=== PATIENT | male | born 1955 | race Caucasian/White ===

== ENCOUNTER 2018-07-26 10:08 | Day surgery (SDC) | payer OTHER ==
[~2018-07-26 10:08] MED LIST: ASPIR 8181 MG PO; FLECAINIDE ACET50 MG PO; METOPROLOL PO
== END 2018-07-26 17:45 | disposition home or self-care (01) ==
LOC: CIR.AMB 10:08
DX: S46.122A Laceration of muscle, fascia and tendon of long head of biceps, left arm, initial encounter (principal)

== ENCOUNTER 2019-08-02 06:15 | Day surgery (SDC) | payer OTHER | END 2019-08-02 11:00 | disposition home or self-care (01) | LOC: AMB-ENDOS 06:15 | DX: K57.32 Diverticulitis of large intestine without perforation or abscess without bleeding (principal); K64.1 Second degree hemorrhoids ==